=== PATIENT | male | born 1995 | race African-American/Black ===

== ENCOUNTER 2022-11-15 21:02 | Emergency (ER) | payer OTHER ==
[2022-11-15 21:23] VITALS: BP 131/78; PULSE 102; RESP 18; TEMP 97.9; BMI 29.5
[2022-11-15 23:18] LABS: CHLORIDE 101 mmol/L (98-107); POTASSIUM 3.9 mmol/L (3.5-5.1); SODIUM 138 mmol/L (136-145)
[2022-11-15 23:20] LABS: CALCIUM 8.9 mg/dL (8.5-10.1)
[2022-11-15 23:21] LABS: ALBUMIN 3.4 g/dl (3.4-5.0); ANION GAP 6 MMOL/L (8-16); BLOOD UREA NITROGEN 9.7 mg/dL (7-18); CO2 31 mmol/L (21-32); GLUCOSE,RANDOM 122 mg/dL (74-106)
[2022-11-15 23:22] LABS: BASO % 0.4 % (0-2.0); EOS % 0.7 % (0-4.5); HEMATOCRIT 38.7 % (35.4-49); HEMOGLOBIN 12.8 GM/dL (11.7-16.9); LYMPH % 20.9 % (8-40); MCH 26.7 pg (25.7-33.7); MCHC 33.1 g/dl (32.0-35.9); MEAN CELL VOLUME 80.5 fl (80-96); MEAN PLT VOLUME 7.7 fl (7.5-11.1); MONO % 19.4 % (3.8-10.2); NEUT % 58.6 % (42.8-82.8); PLATELET COUNT 224 10^3/uL (134-434); RDW 14.9 % (11.9-15.9); WHITE BLOOD COUNT 12.3 K/mm3 (4.0-10.0)
[2022-11-15 23:24] LABS: CREATININE 1.1 mg/dL (0.55-1.3); SGOT/AST 48 U/L (15-37); SGPT/ALT 37 U/L (13-61)
[2022-11-15 23:25] LABS: BILIRUBIN,TOTAL 0.7 mg/dL (0.2-1)
[2022-11-15 23:26] LABS: TOT PROT 7.2 g/dl (6.4-8.2)
[2022-11-15 23:27] LABS: ALK PHOS 71 U/L (45-117)
== END 2022-11-16 01:49 | disposition short-term general hospital (02) ==
LOC: JER 21:02
DX: R45.851 Suicidal ideations (principal); Z86.59 Personal history of other mental and behavioral disorders; Z20.822 Contact with and (suspected) exposure to COVID-19
CPT/HCPCS: 0241U-QW; 36415; 80053; 80164; 80307; 84443; 85025; 93005; 93010; 99285-25